=== PATIENT | male | born 1935 | race Caucasian/White ===

== ENCOUNTER 2017-10-15 19:14 | Inpatient (IN) ==
[2017-10-15 19:45] LABS: Basophils # 0.1 10*3/uL (0.0-0.2); Basophils % 0.6 % (0.0-0.8); Eosinophils # 1.1 10*3/uL (0.0-0.87); Eosinophils % 8.3 % (0.00-10.9); Hematocrit 46.9 VOL% (42.0-52.0); Hemoglobin 15.8 GM/DL (14.0-18.0); Immature Granulocytes % 0.4 %; Immature Granulocytes Absolute 0.05 #; Lymphocytes # 1.2 10*3/uL (1.4-4.0); Lymphocytes % 9.2 % (21.2-54.2); Mean Corpuscular HGB Conc 33.7 GM/DL (32-36); Mean Corpuscular Hemoglobin 32 PG (27-34); Mean Corpuscular Volume 95.9 FL (87-102); Mean Platelet Volume 9.9 FL (9.6-12.0); Monocytes # 0.9 10*3/uL (0.11-0.8); Monocytes % 7.4 % (1.7-12.7); Neutrophils # 9.4 10*3/uL (1.4-7.4); Neutrophils % 74.1 % (38.7-73.9); Platelet Count 203 T/CUMM (130-400); Red Blood Count 4.89 MC/CUMM (3.8-5.5); Red Cell Distribution Width 13.5 % (9.3-17.3); White Blood Count 12.6 T/CUMM (4-12)
[2017-10-15 19:53] LABS: INR 1.1; PT Patient Result 11.4 SECS
[2017-10-15 20:13] LABS: Calcium 9.1 MG/DL (8.5-10.1); Osmolality,Calculated 287.3 MOS/KG (273-304); Potassium 4.2 MMOL/L (3.5-5.1)
[2017-10-15] MEDS ORDERED: methylPREDNISolone SOD SUC 125 MG/2 ML VIAL IV STA (21:04)
[2017-10-15] MEDS ORDERED: ALBUTEROL/IPRATROPIUM 3 ML NEB RESP TX STA ×2 (21:05→23:07)
[2017-10-16] MEDS ORDERED: ONDANSETRON 4 MG/2 ML VIAL IV PRN (01:07)
[2017-10-16] MEDS ORDERED: DEXTROSE 50% 25 GM/50 ML VIAL IV PRN (01:07)
[2017-10-16] MEDS ORDERED: GLUCAGON 1 MG VIAL IM PRN (01:07)
[2017-10-16] MEDS ORDERED: ALBUTEROL 2.5 MG/3 ML NEB RESP TX PRN (01:07)
[2017-10-16] MEDS ORDERED: ACETAMINOPHEN 325 MG TABLET PO PRN (01:07)
[2017-10-16] MEDS: ROSUVASTATIN 20 MG TABLET PO SCH ×2 (01:26→20:55)
[2017-10-16] MEDS: CARVEDILOL 25 MG TABLET PO SCH ×3 (01:26→16:45)
[2017-10-16] MEDS: APIXABAN 5 MG TABLET PO SCH ×3 (01:26→20:55)
[2017-10-16] MEDS: cefTRIAXone 1,000 MG in SYRINGE 1 EACH IV SCH (01:26)
[2017-10-16] MEDS: AZITHROMYCIN INJ 500 MG in SODIUM CHLORIDE 0.9% 250 ML IV SCH (02:56)
[2017-10-16] MEDS: ALBUTEROL/IPRATROPIUM 3 ML NEB RESP TX SCH ×6 (03:00→23:44)
[2017-10-16] MEDS: methylPREDNISolone SOD SUC 40 MG/1 ML VIAL IV SCH ×3 (06:02→22:49)
[2017-10-16 06:24] LABS: Basophils % 0.2 % (0.0-0.8); Eosinophils % 0.1 % (0.00-10.9); Hematocrit 46.4 VOL% (42.0-52.0); Hemoglobin 15.6 GM/DL (14.0-18.0); Immature Granulocytes % 0.6 %; Immature Granulocytes Absolute 0.07 #; Lymphocytes # 0.6 10*3/uL (1.4-4.0); Lymphocytes % 5.2 % (21.2-54.2); Mean Corpuscular HGB Conc 33.6 GM/DL (32-36); Mean Corpuscular Hemoglobin 32 PG (27-34); Mean Corpuscular Volume 94.9 FL (87-102); Mean Platelet Volume 10.1 FL (9.6-12.0); Monocytes # 0.1 10*3/uL (0.11-0.8); Monocytes % 0.8 % (1.7-12.7); Neutrophils # 10.9 10*3/uL (1.4-7.4); Neutrophils % 93.1 % (38.7-73.9); Platelet Count 205 T/CUMM (130-400); Red Blood Count 4.89 MC/CUMM (3.8-5.5); Red Cell Distribution Width 13.3 % (9.3-17.3); White Blood Count 11.7 T/CUMM (4-12)
[2017-10-16 06:33] LABS: Calcium 9.5 MG/DL (8.5-10.1); Osmolality,Calculated 285.8 MOS/KG (273-304); Potassium 4.5 MMOL/L (3.5-5.1)
[2017-10-16 07:04] LABS: Band Neutrophils 14 % (0-10); Lymphocytes 1 % (20-55); Platelet Estimate Normal; Segmented Neutrophils 85 % (50-85); Total Cells Counted 100
[2017-10-16 07:05] LABS: Anisocytosis Slight; Macrocytosis 1+
[2017-10-16] MEDS: BUDESONIDE 0.5 MG/2 ML NEB RESP TX SCH (07:31)
[2017-10-16] MEDS: CHOLECALCIFEROL 5,000 UNIT TABLET PO SCH (10:04)
[2017-10-16] MEDS: THYROID 60 MG TABLET PO SCH (10:04)
[2017-10-16] MEDS: ASPIRIN EC 81 MG TABLET PO SCH (10:05)
[2017-10-16] MEDS: PANTOPRAZOLE 40 MG TABLET PO SCH (10:05)
[2017-10-16] MEDS: IRBESARTAN 150 MG TABLET PO SCH (10:05)
[2017-10-16] MEDS: MAGNESIUM CHLORIDE 64 MG TABLET PO SCH (10:05)
[2017-10-16] MEDS: CLOPIDOGREL 75 MG TABLET PO SCH (10:05)
[2017-10-16] MEDS: SPIRONOLACTONE 25 MG TABLET PO SCH (10:05)
[2017-10-16] MEDS: INSULIN LISPRO 100 UNIT/ML SUBCUT SCH ×4 (11:44→20:53)
[2017-10-16] MEDS: OMEGA 3 ACID ETHYL ESTERS 1 GM CAPSULE PO SCH (12:19)
[2017-10-16] MEDS: ASCORBIC ACID 500 MG TABLET PO SCH (12:19)
[2017-10-16] MEDS: MONTELUKAST 10 MG TABLET PO SCH (12:19)
[2017-10-16] MEDS: FLUTICASONE 50 MCG NASAL SPRAY 16 GM BOTTLE BOTH NARES SCH (12:19)
[2017-10-16] MEDS: FLUTICASONE/SALMETEROL 250-50 DISKUS 14 DOSE INH SCH ×2 (12:19→20:56)
[2017-10-16] MEDS ORDERED: THEOPHYLLINE ER 100 MG TABLET PO SCH (17:00)
[2017-10-16] MEDS: THEOPHYLLINE ER 300 MG TABLET PO SCH (20:55)
[2017-10-16] MEDS ORDERED: sitaGLIPtin 25 MG TABLET PO SCH (21:00)
[2017-10-16] MEDS ORDERED: INSULIN GLARGINE 100 UNIT/ML SUBCUT SCH (21:00)
[2017-10-16] MEDS: ALBUTEROL 2 MG TABLET PO SCH (22:35)
[2017-10-17] MEDS: cefTRIAXone 1,000 MG in SYRINGE 1 EACH IV SCH (01:53)
[2017-10-17] MEDS: AZITHROMYCIN INJ 500 MG in SODIUM CHLORIDE 0.9% 250 ML IV SCH (01:54)
[2017-10-17] MEDS: ALBUTEROL/IPRATROPIUM 3 ML NEB RESP TX SCH ×6 (02:58→23:48)
[2017-10-17] MEDS: methylPREDNISolone SOD SUC 40 MG/1 ML VIAL IV SCH ×3 (05:29→17:19)
[2017-10-17] MEDS: ALBUTEROL 2 MG TABLET PO SCH ×3 (05:29→21:20)
[2017-10-17] MEDS: BUDESONIDE 0.5 MG/2 ML NEB RESP TX SCH (07:09)
[2017-10-17] MEDS: INSULIN LISPRO 100 UNIT/ML SUBCUT SCH ×4 (09:50→21:18)
[2017-10-17] MEDS: THEOPHYLLINE ER 300 MG TABLET PO SCH ×2 (09:51→16:15)
[2017-10-17] MEDS: IRBESARTAN 150 MG TABLET PO SCH (09:51)
[2017-10-17] MEDS: OMEGA 3 ACID ETHYL ESTERS 1 GM CAPSULE PO SCH (09:51)
[2017-10-17] MEDS: APIXABAN 5 MG TABLET PO SCH ×2 (09:51→21:21)
[2017-10-17] MEDS: ASCORBIC ACID 500 MG TABLET PO SCH (09:51)
[2017-10-17] MEDS: PANTOPRAZOLE 40 MG TABLET PO SCH (09:51)
[2017-10-17] MEDS: MONTELUKAST 10 MG TABLET PO SCH (09:51)
[2017-10-17] MEDS: FLUTICASONE/SALMETEROL 250-50 DISKUS 14 DOSE INH SCH ×2 (09:52→21:22)
[2017-10-17] MEDS: CHOLECALCIFEROL 5,000 UNIT TABLET PO SCH (09:52)
[2017-10-17] MEDS: FLUTICASONE 50 MCG NASAL SPRAY 16 GM BOTTLE BOTH NARES SCH (09:52)
[2017-10-17] MEDS: CLOPIDOGREL 75 MG TABLET PO SCH (09:52)
[2017-10-17] MEDS: ASPIRIN EC 81 MG TABLET PO SCH (09:52)
[2017-10-17] MEDS: CARVEDILOL 25 MG TABLET PO SCH ×2 (09:52→16:15)
[2017-10-17] MEDS: SPIRONOLACTONE 25 MG TABLET PO SCH (09:52)
[2017-10-17] MEDS: MAGNESIUM CHLORIDE 64 MG TABLET PO SCH (09:52)
[2017-10-17] MEDS: THYROID 60 MG TABLET PO SCH (09:52)
[2017-10-17] MEDS: INSULIN GLARGINE 100 UNIT/ML SUBCUT SCH (21:18)
[2017-10-17] MEDS: sitaGLIPtin 100 MG TABLET PO SCH (21:19)
[2017-10-17] MEDS: ROSUVASTATIN 20 MG TABLET PO SCH (21:21)
[2017-10-18] MEDS: cefTRIAXone 1,000 MG in SYRINGE 1 EACH IV SCH (01:42)
[2017-10-18] MEDS: AZITHROMYCIN INJ 500 MG in SODIUM CHLORIDE 0.9% 250 ML IV SCH (01:42)
[2017-10-18] MEDS: ALBUTEROL/IPRATROPIUM 3 ML NEB RESP TX SCH ×6 (03:23→23:10)
[2017-10-18] MEDS: ALBUTEROL 2 MG TABLET PO SCH ×3 (05:26→22:46)
[2017-10-18] MEDS: methylPREDNISolone SOD SUC 40 MG/1 ML VIAL IV SCH ×2 (05:26→17:09)
[2017-10-18 05:46] LABS: Basophils % 0.1 % (0.0-0.8); Hematocrit 44.9 VOL% (42.0-52.0); Hemoglobin 15.5 GM/DL (14.0-18.0); Immature Granulocytes % 1.6 %; Lymphocytes # 0.6 10*3/uL (1.4-4.0); Lymphocytes % 2.4 % (21.2-54.2); Mean Corpuscular HGB Conc 34.5 GM/DL (32-36); Mean Corpuscular Hemoglobin 33 PG (27-34); Mean Corpuscular Volume 95.3 FL (87-102); Mean Platelet Volume 10.2 FL (9.6-12.0); Monocytes # 0.9 10*3/uL (0.11-0.8); Monocytes % 3.7 % (1.7-12.7); Neutrophils # 22.9 10*3/uL (1.4-7.4); Neutrophils % 92.2 % (38.7-73.9); Platelet Count 238 T/CUMM (130-400); Red Blood Count 4.71 MC/CUMM (3.8-5.5); Red Cell Distribution Width 13.7 % (9.3-17.3); White Blood Count 24.8 T/CUMM (4-12)
[2017-10-18 06:03] LABS: Calcium 9.2 MG/DL (8.5-10.1); Osmolality,Calculated 290.4 MOS/KG (273-304); Potassium 4.8 MMOL/L (3.5-5.1)
[2017-10-18 06:09] LABS: Hypochromasia 1+; Lymphocytes 3 % (20-55); Macrocytosis Slight; Ovalocytes Slight; Platelet Estimate Adequate; Segmented Neutrophils 94 % (50-85); Total Cells Counted 100
[2017-10-18] MEDS: BUDESONIDE 0.5 MG/2 ML NEB RESP TX SCH (07:19)
[2017-10-18] MEDS: THEOPHYLLINE ER 300 MG TABLET PO SCH ×2 (08:59→17:09)
[2017-10-18] MEDS: CARVEDILOL 25 MG TABLET PO SCH ×2 (08:59→17:09)
[2017-10-18] MEDS: MAGNESIUM CHLORIDE 64 MG TABLET PO SCH (09:00)
[2017-10-18] MEDS: CHOLECALCIFEROL 5,000 UNIT TABLET PO SCH (09:00)
[2017-10-18] MEDS: ASCORBIC ACID 500 MG TABLET PO SCH (09:00)
[2017-10-18] MEDS: APIXABAN 5 MG TABLET PO SCH ×2 (09:00→22:54)
[2017-10-18] MEDS: ASPIRIN EC 81 MG TABLET PO SCH (09:00)
[2017-10-18] MEDS: INSULIN LISPRO 100 UNIT/ML SUBCUT SCH ×4 (09:00→22:49)
[2017-10-18] MEDS: IRBESARTAN 150 MG TABLET PO SCH (09:01)
[2017-10-18] MEDS: PANTOPRAZOLE 40 MG TABLET PO SCH (09:01)
[2017-10-18] MEDS: CLOPIDOGREL 75 MG TABLET PO SCH (09:01)
[2017-10-18] MEDS: OMEGA 3 ACID ETHYL ESTERS 1 GM CAPSULE PO SCH (09:01)
[2017-10-18] MEDS: FLUTICASONE/SALMETEROL 250-50 DISKUS 14 DOSE INH SCH ×2 (09:02→22:52)
[2017-10-18] MEDS: THYROID 60 MG TABLET PO SCH (09:02)
[2017-10-18] MEDS: MONTELUKAST 10 MG TABLET PO SCH (09:02)
[2017-10-18] MEDS: SPIRONOLACTONE 25 MG TABLET PO SCH (09:02)
[2017-10-18] MEDS: FLUTICASONE 50 MCG NASAL SPRAY 16 GM BOTTLE BOTH NARES SCH (09:03)
[2017-10-18] MEDS: MEROPENEM 1,000 MG in SYRINGE 1 EACH IV SCH ×2 (10:58→19:55)
[2017-10-18] MEDS: sitaGLIPtin 100 MG TABLET PO SCH (22:46)
[2017-10-18] MEDS: INSULIN GLARGINE 100 UNIT/ML SUBCUT SCH (22:50)
[2017-10-18] MEDS: ROSUVASTATIN 20 MG TABLET PO SCH (22:54)
[2017-10-19 00:02] LABS: Apearance,Urine CLEAR (Clear); Bacteria,Urine Occasional /HPF (Few); Bilirubin,Urine Negative (Negative); Blood, Urine Negative (Negative); Glucose,Urine (UA) >=500 mg/dL (Negative); Ketones,Urine 5 mg/dL (Negative); Mucus,Urine Occasional /LPF (Occasional); Nitrite,Urine Negative (Negative); Protein,Urine Negative; RBC,Urine 12 /HPF (0-4); Renal Epithelial Cells,Urine Occasional /HPF (<1); Urine Color Yellow (Yellow); Urine Specific Gravity 1.014 (1.001-1.035); Urine Urobilinogen < 2.0 EU/DL (0.2-1.0); WBC,Urine 2 /HPF (0-6)
[2017-10-19] MEDS: cefTRIAXone 1,000 MG in SYRINGE 1 EACH IV SCH (01:30)
[2017-10-19] MEDS: AZITHROMYCIN INJ 500 MG in SODIUM CHLORIDE 0.9% 250 ML IV SCH (01:46)
[2017-10-19] MEDS: MEROPENEM 1,000 MG in SYRINGE 1 EACH IV SCH (03:43)
[2017-10-19] MEDS: ALBUTEROL/IPRATROPIUM 3 ML NEB RESP TX SCH ×6 (04:25→23:08)
[2017-10-19 05:26] LABS: Basophils % 0.1 % (0.0-0.8); Hematocrit 47.2 VOL% (42.0-52.0); Hemoglobin 15.8 GM/DL (14.0-18.0); Immature Granulocytes % 1.3 %; Immature Granulocytes Absolute 0.27 #; Lymphocytes # 0.9 10*3/uL (1.4-4.0); Mean Corpuscular HGB Conc 33.5 GM/DL (32-36); Mean Corpuscular Hemoglobin 32 PG (27-34); Mean Corpuscular Volume 96.9 FL (87-102); Mean Platelet Volume 10.4 FL (9.6-12.0); Monocytes # 1.2 10*3/uL (0.11-0.8); Monocytes % 5.4 % (1.7-12.7); Neutrophils # 19.2 10*3/uL (1.4-7.4); Neutrophils % 89.2 % (38.7-73.9); Platelet Count 246 T/CUMM (130-400); Red Blood Count 4.87 MC/CUMM (3.8-5.5); Red Cell Distribution Width 13.8 % (9.3-17.3); White Blood Count 21.5 T/CUMM (4-12)
[2017-10-19] MEDS: methylPREDNISolone SOD SUC 40 MG/1 ML VIAL IV SCH (05:30)
[2017-10-19 05:52] LABS: Hypochromasia 1+; Lymphocytes 7 % (20-55); Platelet Estimate Adequate; Segmented Neutrophils 92 % (50-85); Total Cells Counted 100
[2017-10-19 05:53] LABS: Macrocytosis Slight
[2017-10-19] MEDS: ALBUTEROL 2 MG TABLET PO SCH ×3 (06:35→21:10)
[2017-10-19] MEDS: BUDESONIDE 0.5 MG/2 ML NEB RESP TX SCH (07:03)
[2017-10-19] MEDS: CARVEDILOL 25 MG TABLET PO SCH ×2 (08:54→17:05)
[2017-10-19] MEDS: ASPIRIN EC 81 MG TABLET PO SCH (08:55)
[2017-10-19] MEDS: PANTOPRAZOLE 40 MG TABLET PO SCH (08:55)
[2017-10-19] MEDS: MONTELUKAST 10 MG TABLET PO SCH (08:55)
[2017-10-19] MEDS: SPIRONOLACTONE 25 MG TABLET PO SCH (08:55)
[2017-10-19] MEDS: CHOLECALCIFEROL 5,000 UNIT TABLET PO SCH (08:56)
[2017-10-19] MEDS: CLOPIDOGREL 75 MG TABLET PO SCH (08:56)
[2017-10-19] MEDS: THYROID 60 MG TABLET PO SCH (08:56)
[2017-10-19] MEDS: THEOPHYLLINE ER 300 MG TABLET PO SCH ×2 (08:57→17:05)
[2017-10-19] MEDS: APIXABAN 5 MG TABLET PO SCH ×2 (08:57→21:10)
[2017-10-19] MEDS: ASCORBIC ACID 500 MG TABLET PO SCH (08:58)
[2017-10-19] MEDS: IRBESARTAN 150 MG TABLET PO SCH (08:58)
[2017-10-19] MEDS: OMEGA 3 ACID ETHYL ESTERS 1 GM CAPSULE PO SCH (08:58)
[2017-10-19] MEDS: MAGNESIUM CHLORIDE 64 MG TABLET PO SCH (08:58)
[2017-10-19] MEDS: INSULIN LISPRO 100 UNIT/ML SUBCUT SCH ×4 (08:58→21:18)
[2017-10-19] MEDS: FLUTICASONE 50 MCG NASAL SPRAY 16 GM BOTTLE BOTH NARES SCH (09:03)
[2017-10-19] MEDS: FLUTICASONE/SALMETEROL 250-50 DISKUS 14 DOSE INH SCH ×2 (09:03→21:12)
[2017-10-19] MEDS: cefTAZidime 1,000 MG in SYRINGE 1 EACH IV SCH ×2 (10:21→17:58)
[2017-10-19] MEDS: TAMSULOSIN 0.4 MG CAPSULE PO SCH (13:59)
[2017-10-19] MEDS: sitaGLIPtin 100 MG TABLET PO SCH (21:09)
[2017-10-19] MEDS: INSULIN GLARGINE 100 UNIT/ML SUBCUT SCH (21:10)
[2017-10-19] MEDS: ROSUVASTATIN 20 MG TABLET PO SCH (21:10)
[2017-10-20] MEDS: cefTAZidime 1,000 MG in SYRINGE 1 EACH IV SCH ×3 (01:15→16:43)
[2017-10-20] MEDS: ALBUTEROL/IPRATROPIUM 3 ML NEB RESP TX SCH ×5 (03:40→20:31)
[2017-10-20] MEDS: ALBUTEROL 2 MG TABLET PO SCH ×3 (06:04→21:21)
[2017-10-20] MEDS: INSULIN LISPRO 100 UNIT/ML SUBCUT SCH ×4 (07:50→21:25)
[2017-10-20] MEDS: BUDESONIDE 0.5 MG/2 ML NEB RESP TX SCH (08:17)
[2017-10-20] MEDS: CHOLECALCIFEROL 5,000 UNIT TABLET PO SCH (09:40)
[2017-10-20] MEDS: OMEGA 3 ACID ETHYL ESTERS 1 GM CAPSULE PO SCH (09:40)
[2017-10-20] MEDS: THEOPHYLLINE ER 300 MG TABLET PO SCH ×2 (09:40→16:43)
[2017-10-20] MEDS: IRBESARTAN 150 MG TABLET PO SCH (09:41)
[2017-10-20] MEDS: MONTELUKAST 10 MG TABLET PO SCH (09:41)
[2017-10-20] MEDS: ASPIRIN EC 81 MG TABLET PO SCH (09:41)
[2017-10-20] MEDS: CLOPIDOGREL 75 MG TABLET PO SCH (09:42)
[2017-10-20] MEDS: TAMSULOSIN 0.4 MG CAPSULE PO SCH ×2 (09:42→21:22)
[2017-10-20] MEDS: APIXABAN 5 MG TABLET PO SCH ×2 (09:42→21:21)
[2017-10-20] MEDS: predniSONE 20 MG TABLET PO SCH (09:42)
[2017-10-20] MEDS: SPIRONOLACTONE 25 MG TABLET PO SCH (09:42)
[2017-10-20] MEDS: FINASTERIDE 5 MG TABLET PO SCH (09:42)
[2017-10-20] MEDS: THYROID 60 MG TABLET PO SCH (09:42)
[2017-10-20] MEDS: FLUTICASONE 50 MCG NASAL SPRAY 16 GM BOTTLE BOTH NARES SCH (09:43)
[2017-10-20] MEDS: ASCORBIC ACID 500 MG TABLET PO SCH (09:43)
[2017-10-20] MEDS: PANTOPRAZOLE 40 MG TABLET PO SCH (09:43)
[2017-10-20] MEDS: FLUTICASONE/SALMETEROL 250-50 DISKUS 14 DOSE INH SCH ×2 (09:45→21:20)
[2017-10-20] MEDS: MAGNESIUM CHLORIDE 64 MG TABLET PO SCH (09:49)
[2017-10-20] MEDS: CARVEDILOL 25 MG TABLET PO SCH ×2 (09:50→16:44)
[2017-10-20] MEDS: DOCUSATE SODIUM 100 MG CAPSULE PO SCH (21:21)
[2017-10-20] MEDS: ROSUVASTATIN 20 MG TABLET PO SCH (21:21)
[2017-10-20] MEDS: sitaGLIPtin 100 MG TABLET PO SCH (21:22)
[2017-10-20] MEDS: MAGNESIUM HYDROXIDE SUSP 30 ML UDCUP PO PRN (21:23)
[2017-10-20] MEDS: INSULIN GLARGINE 100 UNIT/ML SUBCUT SCH (21:25)
[2017-10-21] MEDS: cefTAZidime 1,000 MG in SYRINGE 1 EACH IV SCH ×2 (00:20→09:32)
[2017-10-21] MEDS: ALBUTEROL/IPRATROPIUM 3 ML NEB RESP TX SCH ×5 (00:53→15:40)
[2017-10-21] MEDS: BUDESONIDE 0.5 MG/2 ML NEB RESP TX SCH (07:11)
[2017-10-21] MEDS: INSULIN LISPRO 100 UNIT/ML SUBCUT SCH ×2 (07:36→14:41)
[2017-10-21] MEDS: IRBESARTAN 150 MG TABLET PO SCH (09:18)
[2017-10-21] MEDS: MONTELUKAST 10 MG TABLET PO SCH (09:18)
[2017-10-21] MEDS: CLOPIDOGREL 75 MG TABLET PO SCH (09:18)
[2017-10-21] MEDS: THEOPHYLLINE ER 300 MG TABLET PO SCH (09:18)
[2017-10-21] MEDS: MAGNESIUM HYDROXIDE SUSP 30 ML UDCUP PO PRN (09:18)
[2017-10-21] MEDS: CHOLECALCIFEROL 5,000 UNIT TABLET PO SCH (09:19)
[2017-10-21] MEDS: APIXABAN 5 MG TABLET PO SCH (09:19)
[2017-10-21] MEDS: OMEGA 3 ACID ETHYL ESTERS 1 GM CAPSULE PO SCH (09:19)
[2017-10-21] MEDS: predniSONE 20 MG TABLET PO SCH (09:19)
[2017-10-21] MEDS: CARVEDILOL 25 MG TABLET PO SCH (09:19)
[2017-10-21] MEDS: THYROID 60 MG TABLET PO SCH (09:19)
[2017-10-21] MEDS: DOCUSATE SODIUM 100 MG CAPSULE PO SCH (09:19)
[2017-10-21] MEDS: ASPIRIN EC 81 MG TABLET PO SCH (09:19)
[2017-10-21] MEDS: SPIRONOLACTONE 25 MG TABLET PO SCH (09:19)
[2017-10-21] MEDS: MAGNESIUM CHLORIDE 64 MG TABLET PO SCH (09:20)
[2017-10-21] MEDS: ASCORBIC ACID 500 MG TABLET PO SCH (09:20)
[2017-10-21] MEDS: FLUTICASONE 50 MCG NASAL SPRAY 16 GM BOTTLE BOTH NARES SCH (09:20)
[2017-10-21] MEDS: ALBUTEROL 2 MG TABLET PO SCH ×2 (09:20→16:01)
[2017-10-21] MEDS: FINASTERIDE 5 MG TABLET PO SCH (09:20)
[2017-10-21] MEDS: FLUTICASONE/SALMETEROL 250-50 DISKUS 14 DOSE INH SCH (09:20)
[2017-10-21] MEDS: TAMSULOSIN 0.4 MG CAPSULE PO SCH (09:20)
[2017-10-21] MEDS: PANTOPRAZOLE 40 MG TABLET PO SCH (09:20)
[2017-10-21 15:02] VITALS: BP 111/74
== END 2017-10-21 16:30 | disposition home health service (06) | DRG 191 ==
LOC: EDUNIT# → EDBD → N.ED 19:14 → N.EDINP 23:53 → SUATTDRO 23:53 → N.2E 10-16 00:52
PROVIDERS: ADMIT Internal Medicine; ATTEND Internal Medicine

== ENCOUNTER 2020-07-28 13:19 | Inpatient (IN) ==
[2020-07-28 14:19] LABS: Basophils # 0.1 10*3/uL (0.0-0.2); Basophils % 0.4 % (0.0-0.8); Eosinophils # 0.6 10*3/uL (0.0-0.87); Eosinophils % 5.2 % (0.00-10.9); Hematocrit 41.3 VOL% (42.0-52.0); Hemoglobin 13.2 GM/DL (14.0-18.0); Immature Granulocytes % 0.5 %; Immature Granulocytes Absolute 0.06 #; Lymphocytes # 0.6 10*3/uL (1.4-4.0); Lymphocytes % 5.1 % (21.2-54.2); Mean Platelet Volume 10.6 FL (9.6-12.0); Monocytes % 8.5 % (1.7-12.7); Neutrophils % 80.3 % (38.7-73.9); Platelet Count 204 T/CUMM (130-400); Red Blood Count 4.13 MC/CUMM (3.8-5.5); Red Cell Distribution Width 14.6 % (9.3-17.3); White Blood Count 11.2 T/CUMM (4-12)
[2020-07-28 14:32] LABS: INR 1.1; PT Patient Result 12.4 SECS (10.5-12.0); Partial Thromboplastin Time 27.6 SECS (23.9-33.8)
[2020-07-28 14:37] LABS: Albumin 3.8 G/DL (3.4-5.0); Bilirubin,Total 0.6 MG/DL (0.2-1.0); Calcium 9.2 MG/DL (8.5-10.1); Osmolality,Calculated 280.5 MOS/KG (273-304); Potassium 4.4 MMOL/L (3.5-5.1); Total Protein 6.6 G/DL (6.4-8.2)
[2020-07-28 14:44] LABS: Bilirubin,Urine Negative (Negative); Blood, Urine Large mg/dL (Negative); Glucose,Urine (UA) 50 mg/dL (Negative); Ketones,Urine 20 mg/dL (Negative); Nitrite,Urine Negative (Negative); Protein,Urine >=500 MG/DL; RBC,Urine 89988 /HPF (0-4); Urine Appearance CLOUDY (Clear); Urine Color Red (Yellow); Urine Specific Gravity 1.022 (1.001-1.035); Urine Urobilinogen < 2.0 EU/DL (0.2-1.0)
[2020-07-28] MEDS ORDERED: DILTIAZEM 50 MG/10 ML VIAL IV STA (17:35)
[2020-07-28] MEDS ORDERED: DILTIAZEM 25 MG/5 ML VIAL IV ONE (17:46)
[2020-07-28] MEDS ORDERED: GLUCAGON 1 MG VIAL IM PRN ×3 (18:03→18:06)
[2020-07-28] MEDS ORDERED: DEXTROSE 50% 25 GM/50 ML VIAL IV PRN ×3 (18:03→18:06)
[2020-07-28] MEDS ORDERED: ONDANSETRON 4 MG/2 ML VIAL IV PRN (18:03)
[2020-07-28] MEDS ORDERED: ALBUTEROL 2.5 MG/3 ML NEB RESP TX PRN (18:08)
[2020-07-28 19:57] LABS: Hematocrit 41.9 VOL% (42.0-52.0); Hemoglobin 13.5 GM/DL (14.0-18.0)
[2020-07-28] MEDS: FORMOTEROL 20 MCG/2 ML NEB RESP TX SCH (21:20)
[2020-07-28] MEDS: INSULIN LISPRO 100 UNIT/ML SUBCUT SCH (23:06)
[2020-07-28] MEDS: carvediloL 25 MG TABLET PO SCH (23:07)
[2020-07-28] MEDS: MAGNESIUM CHLORIDE 64 MG TABLET PO SCH (23:07)
[2020-07-28] MEDS: ROSUVASTATIN 20 MG TABLET PO SCH (23:07)
[2020-07-28] MEDS: ALBUTEROL/IPRATROPIUM 3 ML NEB RESP TX PRN (23:20)
[2020-07-28] MEDS: ACETAMINOPHEN 325 MG TABLET PO PRN (23:36)
[2020-07-29 05:47] LABS: Basophils % 0.3 % (0.0-0.8); Eosinophils # 0.2 10*3/uL (0.0-0.87); Eosinophils % 1.2 % (0.00-10.9); Hematocrit 41.6 VOL% (42.0-52.0); Hemoglobin 13.6 GM/DL (14.0-18.0); Immature Granulocytes % 0.4 %; Immature Granulocytes Absolute 0.05 #; Lymphocytes # 0.5 10*3/uL (1.4-4.0); Lymphocytes % 3.4 % (21.2-54.2); Mean Corpuscular HGB Conc 32.7 GM/DL (32-36); Mean Platelet Volume 10.7 FL (9.6-12.0); Monocytes % 8.6 % (1.7-12.7); Neutrophils % 86.1 % (38.7-73.9); Platelet Count 191 T/CUMM (130-400); Red Cell Distribution Width 14.7 % (9.3-17.3); White Blood Count 13.4 T/CUMM (4-12)
[2020-07-29 06:09] LABS: Albumin 3.4 G/DL (3.4-5.0); Bilirubin,Total 0.9 MG/DL (0.2-1.0); Calcium 9.1 MG/DL (8.5-10.1); Osmolality,Calculated 283.4 MOS/KG (273-304); Potassium 4.4 MMOL/L (3.5-5.1); Total Protein 6.4 G/DL (6.4-8.2)
[2020-07-29 06:17] LABS: Band Neutrophils 2 % (0-10); Eosinophils 1 % (0-10); Lymphocytes 4 % (20-55); Segmented Neutrophils 92 % (50-85); Total Cells Counted 100
[2020-07-29 06:18] LABS: Hypochromasia 1+; Macrocytosis Slight; Platelet Estimate Adequate
[2020-07-29] MEDS: FORMOTEROL 20 MCG/2 ML NEB RESP TX SCH ×2 (07:14→19:07)
[2020-07-29] MEDS: INSULIN LISPRO 100 UNIT/ML SUBCUT SCH ×3 (08:01→16:51)
[2020-07-29] MEDS: THYROID 60 MG TABLET PO SCH (08:23)
[2020-07-29] MEDS: FINASTERIDE 5 MG TABLET PO SCH (08:23)
[2020-07-29] MEDS: TAMSULOSIN 0.4 MG CAPSULE PO SCH (08:23)
[2020-07-29] MEDS: CHOLECALCIFEROL 5,000 UNIT TABLET PO SCH (08:23)
[2020-07-29] MEDS: COENZYME Q10 100 MG CAPSULE PO SCH (08:23)
[2020-07-29] MEDS: carvediloL 25 MG TABLET PO SCH ×2 (08:23→22:09)
[2020-07-29] MEDS: MAGNESIUM CHLORIDE 64 MG TABLET PO SCH ×2 (08:24→22:09)
[2020-07-29] MEDS: PANTOPRAZOLE 40 MG TABLET PO SCH (08:24)
[2020-07-29] MEDS: ASCORBIC ACID 500 MG TABLET PO SCH (08:24)
[2020-07-29] MEDS: LOSARTAN 50 MG TABLET PO SCH (08:24)
[2020-07-29] MEDS: OMEGA 3 ACID ETHYL ESTERS 1 GM CAPSULE PO SCH (08:24)
[2020-07-29] MEDS: FLUTICASONE 50 MCG NASAL SPRAY 16 GM BOTTLE BOTH NARES SCH ×2 (08:24→08:32)
[2020-07-29 08:54] LABS: Thyroid Stimulating Hormone 2.29 uIU/ml (0.358-3.74)
[2020-07-29] MEDS: cefTRIAXone 1,000 MG in SODIUM CHLORIDE 0.9% 100 ML IV SCH (12:25)
[2020-07-29] MEDS: FUROSEMIDE 40 MG/4 ML VIAL IV SCH (14:26)
[2020-07-29] MEDS: ROSUVASTATIN 20 MG TABLET PO SCH (22:07)
[2020-07-30] MEDS: INSULIN LISPRO 100 UNIT/ML SUBCUT SCH ×5 (04:07→22:33)
[2020-07-30 05:06] LABS: Basophils % 0.3 % (0.0-0.8); Eosinophils # 0.1 10*3/uL (0.0-0.87); Eosinophils % 0.5 % (0.00-10.9); Hematocrit 39.8 VOL% (42.0-52.0); Hemoglobin 12.7 GM/DL (14.0-18.0); Immature Granulocytes % 0.5 %; Immature Granulocytes Absolute 0.07 #; Lymphocytes # 0.6 10*3/uL (1.4-4.0); Lymphocytes % 3.9 % (21.2-54.2); Mean Corpuscular HGB Conc 31.9 GM/DL (32-36); Mean Corpuscular Volume 99.3 FL (87-102); Mean Platelet Volume 10.9 FL (9.6-12.0); Monocytes % 10.2 % (1.7-12.7); Neutrophils % 84.6 % (38.7-73.9); Platelet Count 174 T/CUMM (130-400); Red Blood Count 4.01 MC/CUMM (3.8-5.5); Red Cell Distribution Width 14.7 % (9.3-17.3)
[2020-07-30 05:23] LABS: Osmolality,Calculated 283.4 MOS/KG (273-304); Potassium 3.9 MMOL/L (3.5-5.1)
[2020-07-30 05:34] LABS: Hypochromasia Slight; Lymphocytes 2 % (20-55); Macrocytosis Slight; Platelet Estimate Adequate; Segmented Neutrophils 89 % (50-85); Total Cells Counted 100
[2020-07-30] MEDS: FORMOTEROL 20 MCG/2 ML NEB RESP TX SCH (07:05)
[2020-07-30] MEDS: FUROSEMIDE 40 MG/4 ML VIAL IV SCH (08:48)
[2020-07-30] MEDS: CHOLECALCIFEROL 5,000 UNIT TABLET PO SCH (08:48)
[2020-07-30] MEDS: COENZYME Q10 100 MG CAPSULE PO SCH (08:48)
[2020-07-30] MEDS: MAGNESIUM CHLORIDE 64 MG TABLET PO SCH ×2 (08:48→22:31)
[2020-07-30] MEDS: LOSARTAN 50 MG TABLET PO SCH (08:49)
[2020-07-30] MEDS: THYROID 60 MG TABLET PO SCH (08:49)
[2020-07-30] MEDS: PANTOPRAZOLE 40 MG TABLET PO SCH (08:49)
[2020-07-30] MEDS: ASCORBIC ACID 500 MG TABLET PO SCH (08:49)
[2020-07-30] MEDS: TAMSULOSIN 0.4 MG CAPSULE PO SCH (08:49)
[2020-07-30] MEDS: OMEGA 3 ACID ETHYL ESTERS 1 GM CAPSULE PO SCH (08:50)
[2020-07-30] MEDS: carvediloL 25 MG TABLET PO SCH ×2 (08:50→22:31)
[2020-07-30] MEDS: FINASTERIDE 5 MG TABLET PO SCH (08:50)
[2020-07-30] MEDS: AZITHROMYCIN INJ 500 MG in SODIUM CHLORIDE 0.9% 250 ML IV SCH (08:51)
[2020-07-30] MEDS: ALBUTEROL/IPRATROPIUM 3 ML NEB RESP TX PRN (09:00)
[2020-07-30] MEDS: FLUTICASONE 50 MCG NASAL SPRAY 16 GM BOTTLE BOTH NARES SCH (09:07)
[2020-07-30] MEDS ORDERED: ALBUTEROL/IPRATROPIUM 3 ML NEB RESP TX SCH (12:00)
[2020-07-30] MEDS: cefTRIAXone 1,000 MG in SODIUM CHLORIDE 0.9% 100 ML IV SCH (12:53)
[2020-07-30] MEDS: ACETAMINOPHEN 325 MG TABLET PO PRN (18:27)
[2020-07-30] MEDS: ALBUTEROL/IPRATROPIUM 3 ML NEB RESP TX SCH (19:28)
[2020-07-30] MEDS ORDERED: NALOXONE 0.4 MG/ML VIAL IV PRN (20:06)
[2020-07-30] MEDS ORDERED: traMADol 50 MG TABLET PO ONE (20:07)
[2020-07-30] MEDS: ROSUVASTATIN 20 MG TABLET PO SCH (22:31)
[2020-07-31] MEDS: ALBUTEROL/IPRATROPIUM 3 ML NEB RESP TX SCH ×4 (00:42→20:25)
[2020-07-31 04:53] LABS: Basophils % 0.3 % (0.0-0.8); Eosinophils # 0.1 10*3/uL (0.0-0.87); Eosinophils % 0.9 % (0.00-10.9); Hematocrit 37.2 VOL% (42.0-52.0); Hemoglobin 12.4 GM/DL (14.0-18.0); Immature Granulocytes % 0.5 %; Immature Granulocytes Absolute 0.05 #; Lymphocytes # 0.8 10*3/uL (1.4-4.0); Mean Corpuscular HGB Conc 33.3 GM/DL (32-36); Mean Corpuscular Volume 98.2 FL (87-102); Mean Platelet Volume 10.8 FL (9.6-12.0); Monocytes % 9.6 % (1.7-12.7); Neutrophils % 81.7 % (38.7-73.9); Platelet Count 168 T/CUMM (130-400); Red Blood Count 3.79 MC/CUMM (3.8-5.5); Red Cell Distribution Width 14.6 % (9.3-17.3)
[2020-07-31 05:13] LABS: Calcium 8.7 MG/DL (8.5-10.1); Osmolality,Calculated 281.5 MOS/KG (273-304)
[2020-07-31] MEDS: INSULIN LISPRO 100 UNIT/ML SUBCUT SCH ×4 (08:20→21:19)
[2020-07-31] MEDS: FUROSEMIDE 40 MG/4 ML VIAL IV SCH (08:25)
[2020-07-31] MEDS: TAMSULOSIN 0.4 MG CAPSULE PO SCH ×2 (08:25→21:19)
[2020-07-31] MEDS: FINASTERIDE 5 MG TABLET PO SCH (08:25)
[2020-07-31] MEDS: THYROID 60 MG TABLET PO SCH (08:25)
[2020-07-31] MEDS: CHOLECALCIFEROL 5,000 UNIT TABLET PO SCH (08:26)
[2020-07-31] MEDS: OMEGA 3 ACID ETHYL ESTERS 1 GM CAPSULE PO SCH (08:26)
[2020-07-31] MEDS: ASCORBIC ACID 500 MG TABLET PO SCH (08:26)
[2020-07-31] MEDS: MAGNESIUM CHLORIDE 64 MG TABLET PO SCH ×2 (08:26→21:19)
[2020-07-31] MEDS: carvediloL 25 MG TABLET PO SCH ×2 (08:26→21:19)
[2020-07-31] MEDS: PANTOPRAZOLE 40 MG TABLET PO SCH (08:26)
[2020-07-31] MEDS: LOSARTAN 50 MG TABLET PO SCH (08:26)
[2020-07-31] MEDS: AZITHROMYCIN INJ 500 MG in SODIUM CHLORIDE 0.9% 250 ML IV SCH (08:27)
[2020-07-31] MEDS: COENZYME Q10 100 MG CAPSULE PO SCH (08:27)
[2020-07-31] MEDS: FLUTICASONE 50 MCG NASAL SPRAY 16 GM BOTTLE BOTH NARES SCH (08:45)
[2020-07-31] MEDS: predniSONE 20 MG TABLET PO SCH (09:18)
[2020-07-31] MEDS: cefTRIAXone 1,000 MG in SODIUM CHLORIDE 0.9% 100 ML IV SCH (12:33)
[2020-07-31] MEDS: ROSUVASTATIN 20 MG TABLET PO SCH (21:19)
[2020-08-01] MEDS: ALBUTEROL/IPRATROPIUM 3 ML NEB RESP TX SCH ×4 (00:27→19:22)
[2020-08-01 05:09] LABS: Basophils % 0.3 % (0.0-0.8); Eosinophils % 0.1 % (0.00-10.9); Hematocrit 38.7 VOL% (42.0-52.0); Hemoglobin 12.7 GM/DL (14.0-18.0); Immature Granulocytes % 0.3 %; Immature Granulocytes Absolute 0.03 #; Lymphocytes # 0.6 10*3/uL (1.4-4.0); Lymphocytes % 6.5 % (21.2-54.2); Mean Corpuscular HGB Conc 32.8 GM/DL (32-36); Mean Corpuscular Volume 98.7 FL (87-102); Mean Platelet Volume 10.8 FL (9.6-12.0); Monocytes % 8.2 % (1.7-12.7); Neutrophils % 84.6 % (38.7-73.9); Platelet Count 163 T/CUMM (130-400); Red Blood Count 3.92 MC/CUMM (3.8-5.5); Red Cell Distribution Width 14.4 % (9.3-17.3); White Blood Count 8.7 T/CUMM (4-12)
[2020-08-01 05:49] LABS: Calcium 8.7 MG/DL (8.5-10.1); Osmolality,Calculated 284.4 MOS/KG (273-304); Potassium 3.7 MMOL/L (3.5-5.1)
[2020-08-01] MEDS: FUROSEMIDE 40 MG/4 ML VIAL IV SCH (08:24)
[2020-08-01] MEDS: predniSONE 20 MG TABLET PO SCH (08:25)
[2020-08-01] MEDS: ASCORBIC ACID 500 MG TABLET PO SCH (08:25)
[2020-08-01] MEDS: TAMSULOSIN 0.4 MG CAPSULE PO SCH ×2 (08:25→21:02)
[2020-08-01] MEDS: LOSARTAN 50 MG TABLET PO SCH (08:25)
[2020-08-01] MEDS: PANTOPRAZOLE 40 MG TABLET PO SCH (08:25)
[2020-08-01] MEDS: carvediloL 25 MG TABLET PO SCH ×2 (08:25→21:03)
[2020-08-01] MEDS: MAGNESIUM CHLORIDE 64 MG TABLET PO SCH ×2 (08:25→21:03)
[2020-08-01] MEDS: COENZYME Q10 100 MG CAPSULE PO SCH (08:26)
[2020-08-01] MEDS: FINASTERIDE 5 MG TABLET PO SCH (08:26)
[2020-08-01] MEDS: CHOLECALCIFEROL 5,000 UNIT TABLET PO SCH (08:26)
[2020-08-01] MEDS: THYROID 60 MG TABLET PO SCH (08:26)
[2020-08-01] MEDS: OMEGA 3 ACID ETHYL ESTERS 1 GM CAPSULE PO SCH (08:26)
[2020-08-01] MEDS: AZITHROMYCIN INJ 500 MG in SODIUM CHLORIDE 0.9% 250 ML IV SCH (08:27)
[2020-08-01] MEDS: FLUTICASONE 50 MCG NASAL SPRAY 16 GM BOTTLE BOTH NARES SCH (08:28)
[2020-08-01] MEDS: INSULIN LISPRO 100 UNIT/ML SUBCUT SCH ×4 (08:31→21:03)
[2020-08-01] MEDS: cefTRIAXone 1,000 MG in SODIUM CHLORIDE 0.9% 100 ML IV SCH (12:43)
[2020-08-01] MEDS: SODIUM CHLORIDE 0.9% 1,000 ML IV SCH (14:56)
[2020-08-01] MEDS: ROSUVASTATIN 20 MG TABLET PO SCH (21:03)
[2020-08-02] MEDS: ALBUTEROL/IPRATROPIUM 3 ML NEB RESP TX SCH ×3 (01:34→13:44)
[2020-08-02 04:30] LABS: Basophils % 0.2 % (0.0-0.8); Eosinophils % 0.5 % (0.00-10.9); Hematocrit 38.7 VOL% (42.0-52.0); Hemoglobin 12.4 GM/DL (14.0-18.0); Immature Granulocytes % 0.6 %; Immature Granulocytes Absolute 0.05 #; Lymphocytes # 0.6 10*3/uL (1.4-4.0); Lymphocytes % 7.2 % (21.2-54.2); Mean Corpuscular Volume 99.7 FL (87-102); Mean Platelet Volume 10.6 FL (9.6-12.0); Monocytes % 8.1 % (1.7-12.7); Neutrophils % 83.4 % (38.7-73.9); Platelet Count 184 T/CUMM (130-400); Red Blood Count 3.88 MC/CUMM (3.8-5.5); Red Cell Distribution Width 14.2 % (9.3-17.3); White Blood Count 8.9 T/CUMM (4-12)
[2020-08-02 05:00] LABS: Calcium 8.7 MG/DL (8.5-10.1); Osmolality,Calculated 282.5 MOS/KG (273-304)
[2020-08-02] MEDS: INSULIN LISPRO 100 UNIT/ML SUBCUT SCH ×2 (08:11→12:44)
[2020-08-02] MEDS: MAGNESIUM CHLORIDE 64 MG TABLET PO SCH (09:35)
[2020-08-02] MEDS: FINASTERIDE 5 MG TABLET PO SCH (09:35)
[2020-08-02] MEDS: OMEGA 3 ACID ETHYL ESTERS 1 GM CAPSULE PO SCH (09:35)
[2020-08-02] MEDS: LOSARTAN 50 MG TABLET PO SCH (09:35)
[2020-08-02] MEDS: THYROID 60 MG TABLET PO SCH (09:35)
[2020-08-02] MEDS: carvediloL 25 MG TABLET PO SCH (09:35)
[2020-08-02] MEDS: CHOLECALCIFEROL 5,000 UNIT TABLET PO SCH (09:36)
[2020-08-02] MEDS: predniSONE 20 MG TABLET PO SCH (09:36)
[2020-08-02] MEDS: ASCORBIC ACID 500 MG TABLET PO SCH (09:36)
[2020-08-02] MEDS: COENZYME Q10 100 MG CAPSULE PO SCH (09:36)
[2020-08-02] MEDS: PANTOPRAZOLE 40 MG TABLET PO SCH (09:36)
[2020-08-02] MEDS: TAMSULOSIN 0.4 MG CAPSULE PO SCH (09:36)
[2020-08-02] MEDS: FLUTICASONE 50 MCG NASAL SPRAY 16 GM BOTTLE BOTH NARES SCH (09:39)
[2020-08-02] MEDS: FUROSEMIDE 40 MG/4 ML VIAL IV SCH (09:43)
[2020-08-02] MEDS: AZITHROMYCIN INJ 500 MG in SODIUM CHLORIDE 0.9% 250 ML IV SCH (09:48)
[2020-08-02] MEDS: SODIUM CHLORIDE 0.9% 1,000 ML IV SCH (10:45)
[2020-08-02 12:03] VITALS: BP 142/104
== END 2020-08-02 15:15 | disposition home health service (06) | DRG 693 ==
LOC: N.ED 13:19 → N.EDINP 13:19 → N.TELEN 19:29
PROVIDERS: ADMIT Internal Medicine; ATTEND Internal Medicine

== ENCOUNTER 2020-08-13 07:41 | Inpatient (IN) ==
[2020-08-13 08:06] LABS: Basophils # 0.1 10*3/uL (0.0-0.2); Basophils % 0.4 % (0.0-0.8); Eosinophils # 0.3 10*3/uL (0.0-0.87); Hemoglobin 12.4 GM/DL (14.0-18.0); Immature Granulocytes % 0.5 %; Immature Granulocytes Absolute 0.08 #; Lymphocytes # 0.6 10*3/uL (1.4-4.0); Lymphocytes % 3.9 % (21.2-54.2); Mean Platelet Volume 10.6 FL (9.6-12.0); Monocytes % 6.2 % (1.7-12.7); Platelet Count 151 T/CUMM (130-400); Red Blood Count 3.92 MC/CUMM (3.8-5.5); Red Cell Distribution Width 14.9 % (9.3-17.3); White Blood Count 14.6 T/CUMM (4-12)
[2020-08-13] MEDS ORDERED: FUROSEMIDE 40 MG/4 ML VIAL IV STA (08:09)
[2020-08-13 08:18] LABS: Albumin 3.5 G/DL (3.4-5.0); Bilirubin,Total 0.8 MG/DL (0.2-1.0); Calcium 9.1 MG/DL (8.5-10.1); Potassium 4.3 MMOL/L (3.5-5.1)
[2020-08-13 08:25] LABS: Eosinophils 6 % (0-10); Hypochromasia 1+; Lymphocytes 4 % (20-55); Microcytosis 1+; Platelet Estimate Adequate; Segmented Neutrophils 88 % (50-85); Total Cells Counted 100
[2020-08-13 09:34] LABS: Bilirubin,Urine Negative (Negative); Blood, Urine Large mg/dL (Negative); Glucose,Urine (UA) Negative (Negative); Hyaline Casts,Urine 3 /LPF (0-3); Ketones,Urine Negative (Negative); Mucus,Urine Few /LPF (Occasional); Nitrite,Urine Negative (Negative); Protein,Urine Negative; RBC,Urine 103 /HPF (0-4); Urine Appearance CLOUDY (Clear); Urine Color Yellow (Yellow); Urine Specific Gravity 1.009 (1.001-1.035); Urine Urobilinogen < 2.0 EU/DL (0.2-1.0)
[2020-08-13] MEDS ORDERED: cefTRIAXone 1,000 MG in SODIUM CHLORIDE 0.9% 100 ML IV STA (09:42)
[2020-08-13] MEDS ORDERED: ONDANSETRON 4 MG/2 ML VIAL IV PRN (11:55)
[2020-08-13] MEDS ORDERED: DEXTROSE 50% 25 GM/50 ML VIAL IV PRN (11:55)
[2020-08-13] MEDS ORDERED: hydrALAZINE 20 MG/1 ML VIAL IV PRN (11:55)
[2020-08-13] MEDS ORDERED: ACETAMINOPHEN 325 MG TABLET PO PRN (11:55)
[2020-08-13] MEDS ORDERED: GLUCAGON 1 MG VIAL IM PRN (11:55)
[2020-08-13] MEDS ORDERED: FLUTICASONE 50 MCG NASAL SPRAY 16 GM BOTTLE BOTH NARES PRN (12:03)
[2020-08-13 12:38] LABS: Risk Ratio 1.6; Thyroid Stimulating Hormone 4.22 uIU/ml (0.358-3.74); VLDL Cholesterol 9.8 MG/DL
[2020-08-13] MEDS: carvediloL 25 MG TABLET PO SCH (22:08)
[2020-08-13] MEDS: LOSARTAN 25 MG TABLET PO SCH (22:08)
[2020-08-13] MEDS: ROSUVASTATIN 20 MG TABLET PO SCH (22:08)
[2020-08-13] MEDS: FINASTERIDE 5 MG TABLET PO SCH (22:09)
[2020-08-13] MEDS: TAMSULOSIN 0.4 MG CAPSULE PO SCH (22:09)
[2020-08-13] MEDS: ASCORBIC ACID 500 MG TABLET PO SCH (22:09)
[2020-08-13] MEDS: FUROSEMIDE 40 MG/4 ML VIAL IV SCH (22:12)
[2020-08-14 04:34] LABS: Basophils # 0.1 10*3/uL (0.0-0.2); Basophils % 0.5 % (0.0-0.8); Eosinophils # 0.3 10*3/uL (0.0-0.87); Hematocrit 37.8 VOL% (42.0-52.0); Hemoglobin 12.1 GM/DL (14.0-18.0); Immature Granulocytes % 0.4 %; Immature Granulocytes Absolute 0.05 #; Lymphocytes # 0.6 10*3/uL (1.4-4.0); Lymphocytes % 4.3 % (21.2-54.2); Mean Corpuscular Volume 100.3 FL (87-102); Mean Platelet Volume 10.9 FL (9.6-12.0); Monocytes % 7.9 % (1.7-12.7); Neutrophils % 84.9 % (38.7-73.9); Platelet Count 144 T/CUMM (130-400); Red Blood Count 3.77 MC/CUMM (3.8-5.5); Red Cell Distribution Width 14.8 % (9.3-17.3); White Blood Count 13.2 T/CUMM (4-12)
[2020-08-14 05:01] LABS: Eosinophils 2 % (0-10); Hypochromasia Slight; Lymphocytes 7 % (20-55); Microcytosis Slight; Platelet Estimate Adequate; Segmented Neutrophils 88 % (50-85); Total Cells Counted 100
[2020-08-14 05:06] LABS: Calcium 9.2 MG/DL (8.5-10.1); Osmolality,Calculated 283.4 MOS/KG (273-304); Potassium 4.3 MMOL/L (3.5-5.1)
[2020-08-14] MEDS: THYROID 60 MG TABLET PO SCH (09:05)
[2020-08-14] MEDS: ASCORBIC ACID 500 MG TABLET PO SCH ×2 (09:07→20:53)
[2020-08-14] MEDS: TAMSULOSIN 0.4 MG CAPSULE PO SCH ×2 (09:08→20:53)
[2020-08-14] MEDS: LOSARTAN 25 MG TABLET PO SCH ×2 (09:08→20:54)
[2020-08-14] MEDS: PANTOPRAZOLE 40 MG TABLET PO SCH (09:09)
[2020-08-14] MEDS: ASPIRIN EC 81 MG TABLET PO SCH (09:09)
[2020-08-14] MEDS: carvediloL 25 MG TABLET PO SCH ×2 (09:09→20:53)
[2020-08-14] MEDS: SPIRONOLACTONE 25 MG TABLET PO SCH (09:10)
[2020-08-14] MEDS: FUROSEMIDE 40 MG/4 ML VIAL IV SCH ×2 (09:16→16:17)
[2020-08-14] MEDS: cefTRIAXone 1,000 MG in SODIUM CHLORIDE 0.9% 100 ML IV SCH (12:56)
[2020-08-14] MEDS: ALBUTEROL/IPRATROPIUM 3 ML NEB RESP TX PRN ×2 (15:48→21:45)
[2020-08-14] MEDS: ROSUVASTATIN 20 MG TABLET PO SCH (20:53)
[2020-08-14] MEDS: FINASTERIDE 5 MG TABLET PO SCH (20:53)
[2020-08-15 04:52] LABS: Basophils % 0.3 % (0.0-0.8); Eosinophils # 0.3 10*3/uL (0.0-0.87); Eosinophils % 2.8 % (0.00-10.9); Hematocrit 36.2 VOL% (42.0-52.0); Hemoglobin 11.8 GM/DL (14.0-18.0); Immature Granulocytes % 0.3 %; Immature Granulocytes Absolute 0.04 #; Lymphocytes # 0.6 10*3/uL (1.4-4.0); Lymphocytes % 5.3 % (21.2-54.2); Mean Corpuscular HGB Conc 32.6 GM/DL (32-36); Mean Corpuscular Volume 98.9 FL (87-102); Mean Platelet Volume 10.7 FL (9.6-12.0); Monocytes % 8.9 % (1.7-12.7); Neutrophils % 82.4 % (38.7-73.9); Platelet Count 126 T/CUMM (130-400); Red Blood Count 3.66 MC/CUMM (3.8-5.5); Red Cell Distribution Width 14.6 % (9.3-17.3)
[2020-08-15 05:13] LABS: Osmolality,Calculated 283.4 MOS/KG (273-304); Potassium 3.5 MMOL/L (3.5-5.1)
[2020-08-15 05:15] LABS: Hypochromasia Slight; Microcytosis Slight
[2020-08-15] MEDS: FUROSEMIDE 40 MG/4 ML VIAL IV SCH ×2 (08:58→16:38)
[2020-08-15] MEDS: ASCORBIC ACID 500 MG TABLET PO SCH ×2 (09:01→21:17)
[2020-08-15] MEDS: LOSARTAN 25 MG TABLET PO SCH ×2 (09:04→21:18)
[2020-08-15] MEDS: ASPIRIN EC 81 MG TABLET PO SCH (09:04)
[2020-08-15] MEDS: THYROID 60 MG TABLET PO SCH (09:04)
[2020-08-15] MEDS: TAMSULOSIN 0.4 MG CAPSULE PO SCH ×2 (09:05→21:18)
[2020-08-15] MEDS: carvediloL 25 MG TABLET PO SCH ×2 (09:05→21:18)
[2020-08-15] MEDS: SPIRONOLACTONE 25 MG TABLET PO SCH (09:06)
[2020-08-15] MEDS: PANTOPRAZOLE 40 MG TABLET PO SCH (09:09)
[2020-08-15] MEDS: ALBUTEROL/IPRATROPIUM 3 ML NEB RESP TX PRN (09:27)
[2020-08-15] MEDS: cefTRIAXone 1,000 MG in SODIUM CHLORIDE 0.9% 100 ML IV SCH (12:57)
[2020-08-15] MEDS: LEVOFLOXACIN 500 MG TABLET PO SCH (13:11)
[2020-08-15] MEDS: ROSUVASTATIN 20 MG TABLET PO SCH (21:18)
[2020-08-15] MEDS: FINASTERIDE 5 MG TABLET PO SCH (21:18)
[2020-08-16 05:44] LABS: Basophils # 0.1 10*3/uL (0.0-0.2); Basophils % 0.6 % (0.0-0.8); Eosinophils # 0.4 10*3/uL (0.0-0.87); Eosinophils % 3.6 % (0.00-10.9); Hematocrit 37.7 VOL% (42.0-52.0); Hemoglobin 11.9 GM/DL (14.0-18.0); Immature Granulocytes % 0.6 %; Immature Granulocytes Absolute 0.06 #; Lymphocytes # 0.7 10*3/uL (1.4-4.0); Lymphocytes % 6.8 % (21.2-54.2); Mean Corpuscular HGB Conc 31.6 GM/DL (32-36); Mean Corpuscular Volume 101.9 FL (87-102); Mean Platelet Volume 10.7 FL (9.6-12.0); Monocytes % 8.2 % (1.7-12.7); Neutrophils % 80.2 % (38.7-73.9); Platelet Count 147 T/CUMM (130-400); Red Cell Distribution Width 14.8 % (9.3-17.3); White Blood Count 9.8 T/CUMM (4-12)
[2020-08-16 05:53] LABS: Calcium 8.7 MG/DL (8.5-10.1); Osmolality,Calculated 287.1 MOS/KG (273-304); Potassium 3.8 MMOL/L (3.5-5.1)
[2020-08-16 06:56] LABS: Hypochromasia Slight; Microcytosis Slight; Platelet Estimate Adequate
[2020-08-16] MEDS: LEVOFLOXACIN 500 MG TABLET PO SCH (08:53)
[2020-08-16] MEDS: carvediloL 25 MG TABLET PO SCH ×2 (08:53→21:19)
[2020-08-16] MEDS: TAMSULOSIN 0.4 MG CAPSULE PO SCH ×2 (08:53→21:21)
[2020-08-16] MEDS: ASCORBIC ACID 500 MG TABLET PO SCH ×2 (08:53→21:21)
[2020-08-16] MEDS: PANTOPRAZOLE 40 MG TABLET PO SCH (08:54)
[2020-08-16] MEDS: LOSARTAN 25 MG TABLET PO SCH ×2 (08:54→21:20)
[2020-08-16] MEDS: ASPIRIN EC 81 MG TABLET PO SCH (08:54)
[2020-08-16] MEDS: THYROID 60 MG TABLET PO SCH (08:54)
[2020-08-16] MEDS: SPIRONOLACTONE 25 MG TABLET PO SCH (08:54)
[2020-08-16] MEDS: FUROSEMIDE 40 MG/4 ML VIAL IV SCH ×2 (08:55→15:45)
[2020-08-16] MEDS: ALBUTEROL/IPRATROPIUM 3 ML NEB RESP TX PRN ×2 (10:38→21:24)
[2020-08-16] MEDS: ROSUVASTATIN 20 MG TABLET PO SCH (21:20)
[2020-08-16] MEDS: FINASTERIDE 5 MG TABLET PO SCH (21:21)
[2020-08-17 05:01] LABS: Basophils % 0.4 % (0.0-0.8); Eosinophils # 0.3 10*3/uL (0.0-0.87); Eosinophils % 3.3 % (0.00-10.9); Hematocrit 37.4 VOL% (42.0-52.0); Hemoglobin 11.8 GM/DL (14.0-18.0); Immature Granulocytes % 0.3 %; Immature Granulocytes Absolute 0.03 #; Lymphocytes # 0.5 10*3/uL (1.4-4.0); Lymphocytes % 5.8 % (21.2-54.2); Mean Corpuscular HGB Conc 31.6 GM/DL (32-36); Mean Corpuscular Volume 101.4 FL (87-102); Mean Platelet Volume 10.8 FL (9.6-12.0); Monocytes % 8.1 % (1.7-12.7); Neutrophils % 82.1 % (38.7-73.9); Platelet Count 144 T/CUMM (130-400); Red Blood Count 3.69 MC/CUMM (3.8-5.5); Red Cell Distribution Width 14.7 % (9.3-17.3); White Blood Count 9.2 T/CUMM (4-12)
[2020-08-17] MEDS: ALBUTEROL/IPRATROPIUM 3 ML NEB RESP TX PRN ×3 (05:40→16:15)
[2020-08-17 05:46] LABS: Calcium 8.9 MG/DL (8.5-10.1); Osmolality,Calculated 286.3 MOS/KG (273-304); Potassium 3.9 MMOL/L (3.5-5.1)
[2020-08-17 06:08] LABS: Anisocytosis 2+; Platelet Estimate Adequate
[2020-08-17 06:09] LABS: Macrocytosis 1+
[2020-08-17] MEDS: FUROSEMIDE 40 MG/4 ML VIAL IV SCH ×3 (08:28→15:30)
[2020-08-17] MEDS: LEVOFLOXACIN 500 MG TABLET PO SCH (08:29)
[2020-08-17] MEDS: THYROID 60 MG TABLET PO SCH (08:29)
[2020-08-17] MEDS: ASPIRIN EC 81 MG TABLET PO SCH (08:30)
[2020-08-17] MEDS: PANTOPRAZOLE 40 MG TABLET PO SCH (08:30)
[2020-08-17] MEDS: ASCORBIC ACID 500 MG TABLET PO SCH ×2 (08:30→21:41)
[2020-08-17] MEDS: SPIRONOLACTONE 25 MG TABLET PO SCH (08:30)
[2020-08-17] MEDS: carvediloL 25 MG TABLET PO SCH ×2 (08:30→21:40)
[2020-08-17] MEDS: TAMSULOSIN 0.4 MG CAPSULE PO SCH ×2 (08:30→21:40)
[2020-08-17] MEDS: LOSARTAN 25 MG TABLET PO SCH ×2 (08:33→21:40)
[2020-08-17] MEDS: predniSONE 20 MG TABLET PO SCH (11:48)
[2020-08-17] MEDS: ROSUVASTATIN 20 MG TABLET PO SCH (21:40)
[2020-08-17] MEDS: FINASTERIDE 5 MG TABLET PO SCH (21:41)
[2020-08-18 06:00] LABS: Basophils % 0.1 % (0.0-0.8); Hematocrit 37.7 VOL% (42.0-52.0); Hemoglobin 12.2 GM/DL (14.0-18.0); Immature Granulocytes % 0.5 %; Immature Granulocytes Absolute 0.04 #; Lymphocytes # 0.3 10*3/uL (1.4-4.0); Mean Corpuscular HGB Conc 32.4 GM/DL (32-36); Mean Corpuscular Volume 99.5 FL (87-102); Mean Platelet Volume 10.7 FL (9.6-12.0); Monocytes % 6.4 % (1.7-12.7); Platelet Count 148 T/CUMM (130-400); Red Blood Count 3.79 MC/CUMM (3.8-5.5); Red Cell Distribution Width 14.4 % (9.3-17.3); White Blood Count 8.6 T/CUMM (4-12)
[2020-08-18 06:32] LABS: Hypochromasia Slight; Lymphocytes 4 % (20-55); Microcytosis Slight; Platelet Estimate Adequate; Segmented Neutrophils 88 % (50-85); Total Cells Counted 100
[2020-08-18 07:02] LABS: Calcium 9.1 MG/DL (8.5-10.1); Osmolality,Calculated 277.1 MOS/KG (273-304); Potassium 3.8 MMOL/L (3.5-5.1)
[2020-08-18] MEDS: ASCORBIC ACID 500 MG TABLET PO SCH ×2 (09:22→21:20)
[2020-08-18] MEDS: PANTOPRAZOLE 40 MG TABLET PO SCH (09:23)
[2020-08-18] MEDS: SPIRONOLACTONE 25 MG TABLET PO SCH (09:23)
[2020-08-18] MEDS: LEVOFLOXACIN 500 MG TABLET PO SCH (09:23)
[2020-08-18] MEDS: predniSONE 20 MG TABLET PO SCH (09:23)
[2020-08-18] MEDS: ASPIRIN EC 81 MG TABLET PO SCH (09:23)
[2020-08-18] MEDS: carvediloL 25 MG TABLET PO SCH ×2 (09:23→21:20)
[2020-08-18] MEDS: LOSARTAN 25 MG TABLET PO SCH ×2 (09:23→21:20)
[2020-08-18] MEDS: THYROID 60 MG TABLET PO SCH (09:23)
[2020-08-18] MEDS: TAMSULOSIN 0.4 MG CAPSULE PO SCH ×2 (09:23→21:20)
[2020-08-18] MEDS: FUROSEMIDE 40 MG/4 ML VIAL IV SCH ×2 (09:24→15:47)
[2020-08-18] MEDS: ALBUTEROL/IPRATROPIUM 3 ML NEB RESP TX PRN ×2 (12:12→17:23)
[2020-08-18] MEDS: FINASTERIDE 5 MG TABLET PO SCH (21:20)
[2020-08-18] MEDS: ROSUVASTATIN 20 MG TABLET PO SCH (21:20)
[2020-08-19] MEDS: ALBUTEROL/IPRATROPIUM 3 ML NEB RESP TX PRN ×2 (01:02→21:03)
[2020-08-19 05:25] LABS: Basophils % 0.2 % (0.0-0.8); Hematocrit 37.3 VOL% (42.0-52.0); Hemoglobin 11.8 GM/DL (14.0-18.0); Immature Granulocytes % 0.5 %; Immature Granulocytes Absolute 0.05 #; Lymphocytes # 0.4 10*3/uL (1.4-4.0); Lymphocytes % 4.1 % (21.2-54.2); Mean Corpuscular HGB Conc 31.6 GM/DL (32-36); Mean Corpuscular Volume 99.2 FL (87-102); Mean Platelet Volume 11.1 FL (9.6-12.0); Monocytes % 7.1 % (1.7-12.7); Neutrophils % 88.1 % (38.7-73.9); Platelet Count 142 T/CUMM (130-400); Red Blood Count 3.76 MC/CUMM (3.8-5.5); Red Cell Distribution Width 14.6 % (9.3-17.3); White Blood Count 10.3 T/CUMM (4-12)
[2020-08-19 05:42] LABS: Calcium 9.4 MG/DL (8.5-10.1); Osmolality,Calculated 281.8 MOS/KG (273-304); Potassium 3.9 MMOL/L (3.5-5.1)
[2020-08-19 05:56] LABS: Anisocytosis 1+; Band Neutrophils 5 % (0-10); Lymphocytes 6 % (20-55); Macrocytosis 1+; Nucleated Red Blood Cells 1 (0-5); Platelet Estimate Adequate; Segmented Neutrophils 82 % (50-85); Total Cells Counted 100
[2020-08-19] MEDS: THYROID 60 MG TABLET PO SCH (09:13)
[2020-08-19] MEDS: ASCORBIC ACID 500 MG TABLET PO SCH ×2 (09:14→21:41)
[2020-08-19] MEDS: carvediloL 25 MG TABLET PO SCH ×2 (09:15→21:41)
[2020-08-19] MEDS: PANTOPRAZOLE 40 MG TABLET PO SCH (09:15)
[2020-08-19] MEDS: ASPIRIN EC 81 MG TABLET PO SCH (09:15)
[2020-08-19] MEDS: LOSARTAN 25 MG TABLET PO SCH ×2 (09:15→21:41)
[2020-08-19] MEDS: SPIRONOLACTONE 25 MG TABLET PO SCH (09:15)
[2020-08-19] MEDS: LEVOFLOXACIN 500 MG TABLET PO SCH (09:15)
[2020-08-19] MEDS: TAMSULOSIN 0.4 MG CAPSULE PO SCH ×2 (09:15→21:40)
[2020-08-19] MEDS: FUROSEMIDE 40 MG/4 ML VIAL IV SCH ×2 (09:16→16:38)
[2020-08-19] MEDS: predniSONE 20 MG TABLET PO SCH (09:23)
[2020-08-19] MEDS ORDERED: cefTRIAXone 1,000 MG in SODIUM CHLORIDE 0.9% 100 ML IV ONE (11:47)
[2020-08-19] MEDS: FINASTERIDE 5 MG TABLET PO SCH (21:40)
[2020-08-19] MEDS: ROSUVASTATIN 20 MG TABLET PO SCH (21:40)
[2020-08-20] MEDS ORDERED: GENTAMICIN INJ 160 MG in SODIUM CHLORIDE 0.9% 100 ML IV ONE (07:00)
[2020-08-20] MEDS ORDERED: cefTRIAXone 1,000 MG in SODIUM CHLORIDE 0.9% 100 ML IV ONE (08:30)
[2020-08-20] MEDS ORDERED: fentaNYL 100 MCG/2 ML VIAL ONE (08:44)
[2020-08-20] MEDS ORDERED: LIDOCAINE 2% 5 ML VIAL ONE (08:44)
[2020-08-20] MEDS ORDERED: GENTAMICIN 80 MG/2 ML VIAL ONE (09:36)
[2020-08-20] MEDS ORDERED: LACTATED RINGERS 1,000 ML IV SCH (10:00)
[2020-08-20] MEDS ORDERED: SEVOFLURANE 1 UNIT/15 MINUTE INH ONE ×2 (10:17→11:27)
[2020-08-20] MEDS ORDERED: ETOMIDATE 40 MG/20 ML VIAL IV ONE (10:17)
[2020-08-20] MEDS ORDERED: ROCURONIUM 50 MG/5 ML VIAL IV ONE (10:17)
[2020-08-20] MEDS ORDERED: propofoL 200 MG/20 ML VIAL IV ONE (10:17)
[2020-08-20] MEDS ORDERED: SUCCINYLCHOLINE 200 MG/10 ML VIAL ONE (10:17)
[2020-08-20] MEDS ORDERED: ONDANSETRON 4 MG/2 ML VIAL ONE (10:17)
[2020-08-20] MEDS ORDERED: PHENYLEPHRINE 1 MG/10 ML SYRINGE IV ONE (10:26)
[2020-08-20] MEDS: FUROSEMIDE 40 MG/4 ML VIAL IV SCH ×2 (13:28→17:13)
[2020-08-20] MEDS: THYROID 60 MG TABLET PO SCH (13:29)
[2020-08-20] MEDS: ASCORBIC ACID 500 MG TABLET PO SCH ×2 (13:30→20:47)
[2020-08-20] MEDS: carvediloL 25 MG TABLET PO SCH ×2 (13:30→20:47)
[2020-08-20] MEDS: predniSONE 20 MG TABLET PO SCH (13:30)
[2020-08-20] MEDS: SPIRONOLACTONE 25 MG TABLET PO SCH (13:30)
[2020-08-20] MEDS: ASPIRIN EC 81 MG TABLET PO SCH (13:31)
[2020-08-20] MEDS: LOSARTAN 25 MG TABLET PO SCH ×2 (13:31→20:46)
[2020-08-20] MEDS: LEVOFLOXACIN 500 MG TABLET PO SCH (13:31)
[2020-08-20] MEDS: TAMSULOSIN 0.4 MG CAPSULE PO SCH ×2 (13:31→20:46)
[2020-08-20] MEDS: PANTOPRAZOLE 40 MG TABLET PO SCH (13:31)
[2020-08-20] MEDS: ALBUTEROL/IPRATROPIUM 3 ML NEB RESP TX PRN (14:30)
[2020-08-20] MEDS: FINASTERIDE 5 MG TABLET PO SCH (20:46)
[2020-08-20] MEDS: ROSUVASTATIN 20 MG TABLET PO SCH (20:46)
[2020-08-20] MEDS: KETOCONAZOLE 2% CREAM 30 GM TUBE TOP SCH (20:47)
[2020-08-21] MEDS: ALBUTEROL/IPRATROPIUM 3 ML NEB RESP TX PRN ×2 (03:56→16:23)
[2020-08-21 06:18] LABS: Basophils % 0.1 % (0.0-0.8); Hematocrit 36.4 VOL% (42.0-52.0); Hemoglobin 11.8 GM/DL (14.0-18.0); Immature Granulocytes % 0.6 %; Immature Granulocytes Absolute 0.07 #; Lymphocytes # 0.2 10*3/uL (1.4-4.0); Lymphocytes % 1.9 % (21.2-54.2); Mean Corpuscular HGB Conc 32.4 GM/DL (32-36); Mean Corpuscular Volume 99.5 FL (87-102); Mean Platelet Volume 11.6 FL (9.6-12.0); Monocytes % 6.1 % (1.7-12.7); Neutrophils % 91.3 % (38.7-73.9); Platelet Count 128 T/CUMM (130-400); Red Blood Count 3.66 MC/CUMM (3.8-5.5); Red Cell Distribution Width 14.6 % (9.3-17.3); White Blood Count 11.7 T/CUMM (4-12)
[2020-08-21 06:41] LABS: Hypochromasia 1+; Lymphocytes 1 % (20-55); Microcytosis 1+; Ovalocytes Slight; Platelet Estimate Normal; Segmented Neutrophils 93 % (50-85); Total Cells Counted 100
[2020-08-21 06:43] LABS: Osmolality,Calculated 283.1 MOS/KG (273-304); Potassium 4.3 MMOL/L (3.5-5.1)
[2020-08-21] MEDS: ASPIRIN EC 81 MG TABLET PO SCH (11:07)
[2020-08-21] MEDS: carvediloL 25 MG TABLET PO SCH ×2 (11:08→21:22)
[2020-08-21] MEDS: LOSARTAN 25 MG TABLET PO SCH ×2 (11:08→21:22)
[2020-08-21] MEDS: THYROID 60 MG TABLET PO SCH (11:08)
[2020-08-21] MEDS: ASCORBIC ACID 500 MG TABLET PO SCH ×2 (11:08→21:21)
[2020-08-21] MEDS: LEVOFLOXACIN 500 MG TABLET PO SCH (11:08)
[2020-08-21] MEDS: SPIRONOLACTONE 25 MG TABLET PO SCH (11:08)
[2020-08-21] MEDS: PANTOPRAZOLE 40 MG TABLET PO SCH (11:08)
[2020-08-21] MEDS: TAMSULOSIN 0.4 MG CAPSULE PO SCH ×2 (11:08→21:22)
[2020-08-21] MEDS: predniSONE 20 MG TABLET PO SCH (11:08)
[2020-08-21] MEDS: FUROSEMIDE 40 MG/4 ML VIAL IV SCH ×2 (11:09→16:02)
[2020-08-21] MEDS: KETOCONAZOLE 2% CREAM 30 GM TUBE TOP SCH ×2 (11:32→21:23)
[2020-08-21] MEDS: ROSUVASTATIN 20 MG TABLET PO SCH (21:22)
[2020-08-21] MEDS: FINASTERIDE 5 MG TABLET PO SCH (21:22)
[2020-08-22] MEDS: ALBUTEROL/IPRATROPIUM 3 ML NEB RESP TX PRN ×2 (03:12→10:10)
[2020-08-22 06:46] LABS: Blood Urea Nitrogen 25 MG/DL (7-18); Calcium 9.2 MG/DL (8.5-10.1); Carbon Dioxide < 1 MMOL/L (21-32); Estimated Glom Filtration Rate 64 ML/MIN; Glucose 257 MG/DL (74-106); Osmolality,Calculated 276.5 MOS/KG (273-304); Potassium 4.1 MMOL/L (3.5-5.1); Sodium 132 MMOL/L (136-145)
[2020-08-22 07:01] LABS: Basophils % 0.2 % (0.0-0.8); Hematocrit 40.5 VOL% (42.0-52.0); Hemoglobin 13.1 GM/DL (14.0-18.0); Immature Granulocytes % 0.5 %; Immature Granulocytes Absolute 0.05 #; Lymphocytes # 0.5 10*3/uL (1.4-4.0); Lymphocytes % 4.9 % (21.2-54.2); Mean Corpuscular HGB Conc 32.3 GM/DL (32-36); Mean Platelet Volume 11.9 FL (9.6-12.0); Monocytes % 7.3 % (1.7-12.7); Neutrophils % 87.1 % (38.7-73.9); Platelet Count 97 T/CUMM (130-400); Red Blood Count 4.05 MC/CUMM (3.8-5.5); Red Cell Distribution Width 14.5 % (9.3-17.3); White Blood Count 9.6 T/CUMM (4-12)
[2020-08-22 07:17] LABS: Band Neutrophils 1 % (0-10); Lymphocytes 9 % (20-55); Platelet Estimate Decreased; Segmented Neutrophils 85 % (50-85); Total Cells Counted 100
[2020-08-22 07:18] LABS: Anisocytosis 1+; Macrocytosis 1+
[2020-08-22 09:36] LABS: Stone Analysis Interpretation SEE COMMENTS
[2020-08-22] MEDS: THYROID 60 MG TABLET PO SCH (09:40)
[2020-08-22] MEDS: SPIRONOLACTONE 25 MG TABLET PO SCH (09:41)
[2020-08-22] MEDS: carvediloL 25 MG TABLET PO SCH (09:41)
[2020-08-22] MEDS: TAMSULOSIN 0.4 MG CAPSULE PO SCH (09:41)
[2020-08-22] MEDS: PANTOPRAZOLE 40 MG TABLET PO SCH (09:41)
[2020-08-22] MEDS: LEVOFLOXACIN 500 MG TABLET PO SCH (09:41)
[2020-08-22] MEDS: ASPIRIN EC 81 MG TABLET PO SCH (09:41)
[2020-08-22] MEDS: predniSONE 20 MG TABLET PO SCH (09:41)
[2020-08-22] MEDS: LOSARTAN 25 MG TABLET PO SCH (09:41)
[2020-08-22] MEDS: ASCORBIC ACID 500 MG TABLET PO SCH (09:41)
[2020-08-22] MEDS: KETOCONAZOLE 2% CREAM 30 GM TUBE TOP SCH (09:42)
[2020-08-22] MEDS: FUROSEMIDE 40 MG/4 ML VIAL IV SCH ×2 (09:43→15:15)
[2020-08-22 17:03] VITALS: BP 135/85
== END 2020-08-22 17:20 | disposition home health service (06) | DRG 291 ==
LOC: EDUNIT# → EDBD → N.EDINP 07:41 → N.ED 07:41 → SUATTDRO 11:37 → N.TELEN 13:53 → SUATTDRO 08-15 09:00
PROVIDERS: ADMIT Internal Medicine; ATTEND Internal Medicine